=== PATIENT | male | born 1955 | race Caucasian/White ===

== ENCOUNTER 2019-06-14 09:50 | Outpatient (CLI) | payer BC | END 2019-06-14 23:59 | disposition home or self-care (01) | LOC: CVU 09:50 → CFH 23:59 | PROVIDERS: ATTEND Internal Medicine Cardiovascular Disease | DX: I08.8 Other rheumatic multiple valve diseases (principal); I10 Essential (primary) hypertension; Z82.49 Family history of ischemic heart disease and other diseases of the circulatory system | CPT/HCPCS: 75571; 93306 ==

== ENCOUNTER 2019-07-12 07:40 | Outpatient (CLI) | payer BC ==
[2019-07-12] MEDS ORDERED: LOSA25TA25 PO (08:38)
[2019-07-12] MEDS ORDERED: statin PO (08:38)
[2019-07-12 08:43] LABS: BASOPHILS # (AUTO) 0.02 x10^3/uL (0-0.1); BASOPHILS % (AUTO) 0 % (0-1); EOSINOPHILS # (AUTO) 0.17 x10^3/uL (0-0.4); EOSINOPHILS % (AUTO) 4 % (1-7); LYMPHOCYTES # (AUTO) 0.96 x10^3/uL (1-3.4); LYMPHOCYTES % (AUTO) 20 % (22-44); MD NO; MEAN CORPUSCULAR HEMOGLOBIN 29.9 pg (27.5-34.5); MEAN CORPUSCULAR HGB CONC 33.2 g/dL (33.2-36.2); MEAN CORPUSCULAR VOLUME 89.9 fL (81-97); MEAN PLATELET VOLUME 6.8 fL (7.4-10.4); MONOCYTES # (AUTO) 0.33 x10^3/uL (0.2-0.8); MONOCYTES % (AUTO) 7 % (2-9); NEUTROPHILS % (AUTO) 70 % (42-75); PLATELET COUNT 164 x10^3/uL (130-400); RED BLOOD COUNT 4.84 x10^6/uL (4.38-5.82); RED CELL DISTRIBUTION WIDTH 13.9 % (9.4-14.8)
[2019-07-12 08:52] LABS: ANION GAP 9 mmol/L (5-15); CALCIUM 8.8 mg/dL (8.5-10.1); CHLORIDE 113 mmol/L (98-107); CREATININE 1.17 mg/dL (0.7-1.3)
[2019-07-16] MEDS ORDERED: LOSA100T14 PO (08:52)
[2019-07-16] MEDS ORDERED: ATOR40TA78 PO (08:52)
[2019-07-16] MEDS ORDERED: NITR0.4T28 SL (08:52)
[2019-07-16] MEDS ORDERED: ASPI81TA45 PO (08:52)
[2019-07-17] MEDS ORDERED: TICA90TA PO (09:57)
== END 2019-07-12 23:59 | disposition home or self-care (01) ==
LOC: STAR 07:40
PROVIDERS: ATTEND Internal Medicine Cardiovascular Disease
DX: I25.10 Atherosclerotic heart disease of native coronary artery without angina pectoris (principal); R06.02 Shortness of breath
CPT/HCPCS: 36415; 80048; 85025

== ENCOUNTER 2020-07-10 06:44 | Outpatient (CLI) | payer BC ==
[~2020-07-10 06:44] MED LIST: ASPI81TA45 PO; ATOR40TA78 PO; LOSA100T14 PO; LOSA25TA25 PO; NITR0.4T28 SL; TICA90TA PO; statin PO
== END 2020-07-10 23:59 | disposition home or self-care (01) ==
LOC: CVU 06:44
PROVIDERS: ATTEND Internal Medicine Cardiovascular Disease
DX: I08.8 Other rheumatic multiple valve diseases (principal); I25.10 Atherosclerotic heart disease of native coronary artery without angina pectoris
CPT/HCPCS: 93306; 93356